=== PATIENT | female | born 1945 | race Caucasian/White ===

== ENCOUNTER 2024-09-17 10:51 | Emergency (ER) | payer OTHER, BC ==
[2024-09-17 11:07] VITALS: BP 150/76; PULSE 65; RESP 20; TEMP 98; BMI 25.7
[2024-09-17] MEDS: ACETAMINOPHEN 325 MG TABLET (FP) PO ONE (12:37)
== END 2024-09-17 15:42 | disposition home or self-care (01) ==
LOC: JER 10:51
DX: M25.471 Effusion, right ankle (principal); M25.571 Pain in right ankle and joints of right foot
CPT/HCPCS: 73610-TC-RT-FY; 73630-TC-RT-FY; 93971-TC; 99284-25